=== PATIENT | female | born 1955 | race Caucasian/White ===

== ENCOUNTER 2016-09-24 03:41 | Inpatient (IN) | payer OTHER ==
[~2016-09-24] VITALS: Ht 157.5 cm; Wt 157.9 kg
[2016-09-24] VITALS (13 sets, daily range): BP systolic 110–187; BP diastolic 55–82; PULSE 53–81; RESP 18–20; Ht 157.5 cm; Wt 157.9 kg
[2016-09-24] MEDS ORDERED: NACL 0.9% 3 ML SYG IV SCH ×2 (07:30)
[2016-09-24] MEDS ORDERED: hydrALAzine 20 MG INJ IV PRN (07:30)
[2016-09-24] MEDS ORDERED: HYDROCODONE/APAP (5/325) TAB PO PRN (07:30)
[2016-09-24] MEDS ORDERED: ACETAMINOPHEN 325 MG TAB PO PRN (07:30)
[2016-09-24] MEDS ORDERED: morphine 2 MG INJ IV PRN (07:30)
[2016-09-24] MEDS ORDERED: ONDANSETRON 4 MG TAB PO PRN (07:30)
[2016-09-24] MEDS ORDERED: NITROGLYCERIN (SL) 0.4 MG TAB SL PRN (07:30)
[2016-09-24 08:42] LABS: CK-MB 0.36 ng/ml (0.0-2.4)
[2016-09-24 08:45] LABS: TROPONIN-I 0.013 ng/ml (0.00-0.12)
[2016-09-24] MEDS: FAMOTIDINE 20 MG TAB PO SCH ×2 (08:49→21:07)
[2016-09-24] MEDS: ASPIRIN 81 MG TAB PO SCH (08:49)
[2016-09-24] MEDS: GABAPENTIN 300 MG CAP PO SCH ×2 (13:35→21:07)
[2016-09-24] MEDS: LOSARTAN 50 MG TAB PO SCH (13:35)
[2016-09-24] MEDS: ENOXAPARIN 40 MG/0.4 ML SYG SC SCH (13:36)
--- NOTE | 2016-09-24 13:37 | HP ---
DATE OF ADMISSION: 09/24/2016 PRIMARY CARE PHYSICIAN: Galindo [place]. INFORMATICS MANAGER: None. CHIEF COMPLAINT: Abnormal blood pressure. HISTORY OF PRESENT ILLNESS: This 60-year-old female who presents from home with chronic hypertensio n. She states her blood pressure even runs in the 270s. Her lows run around 100. Lately she has b een feeling some fear, maybe apprehension, maybe some sort of flushing or diaphoresis, which is actu ally a subacute issue as well. It may be more prominent and lasting longer over the last few days. It is not acute. She states is due to her elevated blood pressure. No recent cough, fever, vomiting, syncope. Edema is stable. Chest pain is atypical at rest, nonexe rtional. No pleuritic discomfort. No intense sweating, but there is potential feeling flushed, anx ious, may be diaphoretic. The patient checks blood pressure in both arms, right runs higher than left, but she may be using so me left numbers to titrate her medications. She takes only 2 medications regularly. Her nifedipine she does not take as she feels like it is only needed when it is p.r.n. The same thing with the cl onidine, which she was told and takes regularly for p.r.n. clonidine. She does add salt to her food s. She has never been tested for sleep apnea. No history of kidney problems. Chronic subacute neuropathy, carpal tunnel syndrome, depression may be acute stressors, dealing with her mother. At [facility] ER, BMP unremarkable, troponin negative, EKG normal, chest x-ray. Otherwise, unrema rkable. Blood pressure was 230 over maybe 120 and it was stabilized and she was discharged. PAST MEDICAL HISTORY: 1. Hypertension. 2. Morbid obesity. The patient had lap band which was then reversed 5 years later. 3. Sleep apnea. 3. Depression. 4. Dyslipidemia. 5. Venous stasis. 6. Prediabetes. 7. Possible history of pneumonia. 8. Appendectomy. 9. Hemorrhoids. PAST SURGICAL HISTORY: Appendectomy, possible hemorrhoid surgery and lap band which was reversed fo r 5 years. SOCIAL HISTORY: No tobacco or alcohol. FAMILY HISTORY: There is no family history of early coronary artery disease, cancer, or stroke. ALLERGIES: NO KNOWN DRUG ALLERGIES. HOME MEDICATIONS: 1. Coreg 25 b.i.d. 2. Hyzaar 50 possibly once daily. 3. Clonidine p.r.n. 4. Neurontin. 5. Possibly Paxil. 6. Other medications pending. REVIEW OF SYSTEMS: NEUROLOGIC: Occasional headache. No loss of speech or vision. CARDIOVASCULAR: Positive chest pain, dyspnea and edema. LUNGS: Positive chest pain, dyspnea, edema, occasional cough. ABDOMEN: Occasional upper abdominal pain. No nausea, vomiting, diarrhea, constipation. GENITOURINARY: No hematuria, burning, micturition, fever. MUSCULOSKELETAL: Mild gait dysfunction. No rash. Positive edema. No itching. Positive stasis. ENDOCRINE: Positive dyslipidemia. Prediabetes, metabolic syndrome. No previous thyroid dysfunctio n. HEMATOLOGIC: No hematochezia, melena, hematuria. CONSTITUTIONAL: No fever, no chills. Weight change unknown. PSYCHIATRY: The patient has stable mood without significant agitation, anxiety, depression. PHYSICAL EXAMINATION: HEENT: Extraocular movements are intact. No pallor, no icterus. No adenopathy, no carotid bruits, no JVD. No droop. CARDIOVASCULAR: S1, S2 regular. No murmur, rub, gallops. LUNGS: Clear to auscultation bilaterally. ABDOMEN: Bowel sounds present, nontender, nondistended. No rigidity, no rebound or guarding. Ther e is significant pannus. Weight of at least 158 kg. EXTREMITIES: With 1+ edema. Chronic stasis, venous incompetency. Negative Homans sign. ASSESSMENT AND PLAN 1. Hypertensive urgency. 2. Salt nonadherence. 3. Probable apnea. 4. Morbid obesity. 5. Depression. 6. Carpal tunnel. 7. Dyslipidemia/metabolic syndrome/prediabetes. 8. Possible postmenopausal. PLAN: 1. Admit to med/surg. Blood pressure presently 110/55. Will add 3 medicines to help her out on he r blood pressure management from 3 different pathways. 2. Continue Lovenox for DVT prophylaxis. 3. No evidence of acute coronary syndrome, VT, etc. 4. Check TSH and renal and hepatic panel. 5. Recommend she gets testing and treated for sleep apnea. 6. Recommend she get treated for morbid obesity and to consider weight management through bypass ag ain. 7. In terms of depression, recommended she have psychology assistance to help her with long-term ca re and less medications ideally. 8. Recommend she checked her blood pressures and continue to titrate her medications using her high er numbers on her right hand. I have reinforced the issue of her symptoms of nausea and fatigue and dizziness more likely due to fluctuation in her blood pressure, rather than her low numbers that sh abdoul thinks are the cause. I recommend she continued to have her blood pressure machine evaluated in t he office setting with a more formal blood pressure monitor for continued continuity. Dictated By: ANA PAULA RODRGIUEZ/YAJAIRA Conf#: [id number] DID#: [id number]
--- NOTE | 2016-09-24 13:54 | RADRPT ---
PROCEDURE: US bilateral lower extremity veins. CLINICAL INDICATION: Bilateral leg pain and swelling. TECHNIQUE: Multiple longitudinal and transverse images of the bilateral lower extremity veins were obtained with boyce scale and color Doppler imaging. The common femoral vein, femoral vein, and popl iteal vein were evaluated. 2D grayscale measurements with compression sonography, color Doppler, and pulsed Doppler with augmentation. COMPARISON: No prior studies are available for comparison. FINDINGS: The bilateral common femoral, femoral and popliteal veins are normally compressible throughout. Col or flow demonstrates normal filling of the vessels. Normal waveforms are visualized and there is no rmal response to augmentation. IMPRESSION: 1. No evidence of deep vein thrombosis involving either lower extremity. RPTAT: QQ .Calvin Vance MD, MD Date Time Electronically viewed and signed by .Calvin Vance MD, on 09/24/2016 13:54 .R/
[2016-09-24 15:05] LABS: CREATINE KINASE 37 IU/L (23-200)
[2016-09-24 15:14] LABS: CK-MB 0.36 ng/ml (0.0-2.4)
[2016-09-24 15:31] LABS: TROPONIN-I < 0.012 ng/ml (0.00-0.12)
[2016-09-24] MEDS: NIFEdipine (XL) 60 MG TAB PO SCH (21:06)
[2016-09-25] VITALS (11 sets, daily range): BP systolic 110–136; BP diastolic 52–63; PULSE 59–124; RESP 16–20
--- NOTE | 2016-09-25 05:56 | RADRPT ---
PROCEDURE: XR Chest. CLINICAL INDICATION: Chest pain TECHNIQUE: A single AP view of the chest was obtained. COMPARISON: None. FINDINGS: No focal airspace opacification, pleural effusion or pneumothorax is seen. The cardiomediastinal si lhouette is moderately enlarged. Calcifications are seen within the aortic arch. The osseous structu res are unremarkable. IMPRESSION: 1. No radiographic evidence of acute cardiopulmonary disease. 2. Moderate cardiomegaly and aortic atherosclerosis. RPTAT: HH .Danika Flores MD, MD Date Time Electronically viewed and signed by .Danika Flores MD, MD on 09/25/2016 05:56 .G/
[2016-09-25 07:09] LABS: ADD SCAN DIFF NO
[2016-09-25 07:13] LABS: BASOPHILS % 0.1 % (0.0-2.0); EOSINOPHILS # 0.4 10^3/ul (0.0-0.5); EOSINOPHILS % 4.5 % (0.0-7.0); HEMATOCRIT 37.5 % (37.0-47.0); HEMOGLOBIN 11.9 g/dl (12.0-16.0); LYMPHOCYTES # 2.6 10^3/ul (0.8-2.9); LYMPHOCYTES % 31.8 % (15.0-51.0); MEAN CORPUSCULAR HEMOGLOBIN 27.8 pg (29.0-33.0); MEAN CORPUSCULAR HGB CONC 31.7 g/dl (32.0-37.0); MEAN CORPUSCULAR VOLUME 87.6 fl (82.0-101.0); MEAN PLATELET VOLUME 10.1 fl (7.4-10.4); MONOCYTE # 0.5 10^3/ul (0.3-0.9); MONOCYTES % 6.2 % (0.0-11.0); NEUTROPHIL # 4.7 10^3/ul (1.6-7.5); NEUTROPHILS % 57.2 % (39.0-77.0); PLATELET COUNT 240 10^3/UL (140-415); RED BLOOD COUNT 4.28 10^6/ul (4.20-5.40); RED CELL DISTRIBUTION WIDTH 13.9 % (11.5-14.5); WHITE BLOOD COUNT 8.3 10^3/ul (4.8-10.8)
[2016-09-25 07:25] LABS: INR 1.06; PROTIME 13.8 Sec (12.2-14.2); PT RATIO 1.1
[2016-09-25 07:29] LABS: ALBUMIN 3.8 g/dl (3.3-4.9)
[2016-09-25 07:30] LABS: POTASSIUM 4.1 mmol/L (3.5-5.1)
[2016-09-25 07:31] LABS: CREATININE 0.82 mg/dl (0.44-1.00)
[2016-09-25 07:32] LABS: ALBUMIN/GLOBULIN RATIO 1.11; BILIRUBIN,INDIRECT 0.3 mg/dl (0-1.1); BILIRUBIN,TOTAL 0.3 mg/dl (0.2-1.3); TOTAL PROTEIN 7.2 g/dl (6.1-8.1)
[2016-09-25 07:33] LABS: CALCIUM 9.6 mg/dl (8.4-10.2)
[2016-09-25 07:59] LABS: THYROID STIMULATING HORMONE 1.14 MIU/L (0.465-4.680)
[2016-09-25] MEDS: GABAPENTIN 300 MG CAP PO SCH (08:43)
[2016-09-25] MEDS: NIFEdipine (XL) 60 MG TAB PO SCH (08:43)
[2016-09-25] MEDS: ENOXAPARIN 40 MG/0.4 ML SYG SC SCH (08:44)
[2016-09-25] MEDS: ASPIRIN 81 MG TAB PO SCH (08:44)
[2016-09-25] MEDS: FAMOTIDINE 20 MG TAB PO SCH (08:44)
[2016-09-25] MEDS: LOSARTAN 50 MG TAB PO SCH (08:44)
--- NOTE | 2016-09-25 12:34 | PDOCDIS ---
Discharge Instructions CONDITION Patient Condition: Stable HOME CARE INSTRUCTIONS: Special Diet: cardiac ACTIVITY: Activity Restrictions: Do not Drive FOLLOW UP/APPOINTMENTS Appointments appt pcp - 1wk Sleep Apnea testing referral: [phone]- [facility]. ANA PAULA VALENTINE MD Sep 25, 2016 12:34
[2016-09-25] MEDS ORDERED: NIFE60TA11 PO (12:36)
[2016-09-25 22:20] LABS: ADD UMIC NO; URINE BILIRUBIN (Dip) NEGATIVE (NEGATIVE); URINE BLOOD (Dip) NEGATIVE (NEGATIVE); URINE COLOR YELLOW (YELLOW); URINE GLUCOSE (Dip) NEGATIVE (NEGATIVE); URINE KETONES (Dip) NEGATIVE (NEGATIVE); URINE LEUKOCYTE ESTERASE (Dip) NEGATIVE (NEGATIVE); URINE NITRITE (Dip) NEGATIVE (NEGATIVE); URINE TOTAL PROTEIN (Dip) NEGATIVE (NEGATIVE); URINE UROBILINOGEN (Dip) 0.2 E.U./dL (0.1-1.0)
--- NOTE | 2016-09-27 11:57 | RADRPT ---
Vent Rate: 69 bpm RR Interval: 0 msec TX Interval: 156 msec QRS Duration: 88 msec QT Interval: 414 msec QTC Interval: 443 msec P-R-T [place]: 51 - 22 - 67 degrees Normal sinus rhythm Normal ECG No previous tracing available for comparison Electronically Signed By: Gaudencio Petty [id number]
--- NOTE | 2016-09-28 09:06 | DS ---
DATE OF ADMISSION: 09/24/2016 DATE OF DISCHARGE: 09/25/2016 DATE OF : 1955 DATE OF ADMISSION: 09/24/2016 DATE OF DISCHARGE: 09/25/2016 PRIMARY CARE PHYSICIAN: ____ WAX PATTERN COATER: None. DIAGNOSIS ON ADMISSION: Hypertensive urgency. DIAGNOSES ON DISCHARGE: 1. Hypertensive urgency, resolved. 2. Probable sleep apnea. 3. Salt nonadherence. 4. Morbid obesity. 5. Chronic hypertension. 6. Depression. 7. Carpal tunnel syndrome. 8. Dyslipidemia/metabolic syndrome/pre-diabetes. HOSPITAL COURSE: A 60-year-old female admitted with hypertensive urgency. On 3 regular medications , her blood pressure is very well controlled, 100 to 120. She is stable and fit for discharge. No evidence of end organ damage. Patient herself probably has symptoms due to fluctuation in blood pre ssures more than her present numbers, which she claims are low. I did reinforce the issue of treatm ent in blood pressure in that her symptoms ____ discomfort should improve ____ time. Additionally, the patient would benefit from gastric bypass evaluation and sleep apnea evaluation. I will give he r the phone number to call for sleep apnea testing. Additionally, chest x-ray, ultrasound negative for DVT. Troponins negative. For her blood pressure, she will continue Coreg 25 b.i.d., Hyzaar 50 daily. I have added Nifedipine daily and she may continue clonidine p.r.n. LABORATORIES: Chest x-ray shows cardiomegaly and CBC unremarkable except hemoglobin of 11.9. CMP e ssentially unremarkable. A1c 5.5. Triglycerides 190, total of 139, HDL low at 34, LDL of 67 and TS H of ____. DISCHARGE PLAN: Home. Follow up with primary in 1 week. She may follow up with her regular cardio logist as needed, as recommended. DIET: Low salt, cholesterol. ACTIVITY: No driving if dizzy. DURABLE MEDICAL EQUIPMENT: None. CODE STATUS: FULL. CONDITION: Good. REASON FOR ADMISSION: Hypertensive urgency. BARRIERS TO DISCHARGE: None. PENDING TESTS: None. FUNCTIONAL STATUS: The patient is awake, alert and aware of care plan and options. ALLERGIES: NO KNOWN DRUG ALLERGIES STOPPED MEDICATIONS: None. CONTINUED MEDICATIONS: 1. Coreg 25 twice daily. 2. Neurontin 600 twice daily. 3. Clonidine 0.1 every 6 to 8 hours as needed for elevated blood pressure as before. 4. Hyzaar 50 one tablet daily. 5. I believe, Paxil 20 mg daily. ALTERED MEDICATIONS: None. NEW MEDICATIONS: Procardia-XL 60 mg daily. Dictated By: ANA PAULA RODRIGUEZ/YAJAIRA Conf#: [id number] DID#: [id number]
== END 2016-09-25 17:35 | disposition home or self-care (01) | DRG 305 ==
LOC: MS4 06:20
PROVIDERS: ADMIT Family Medicine; ATTEND Family Medicine
DX: I16.0 Hypertensive urgency (principal); E88.81 Metabolic syndrome and other insulin resistance; Z68.44 Body mass index [BMI] 60.0-69.9, adult; G47.30 Sleep apnea, unspecified; E66.01 Morbid (severe) obesity due to excess calories; F32.9 Major depressive disorder, single episode, unspecified; G56.00 Carpal tunnel syndrome, unspecified upper limb; E78.5 Hyperlipidemia, unspecified; R73.03 Prediabetes; N95.9 Unspecified menopausal and perimenopausal disorder
CPT/HCPCS: 71010; 80053; 80061; 81003; 82306; 82550; 82553; 83036; 84443; 84484; 84703; 85025; 85610; 87081; 93005; 93923; J1650

== ENCOUNTER 2016-09-27 23:19 | Inpatient (IN) | payer OTHER ==
[~2016-09-27] VITALS: Ht 157.5 cm; Wt 148.0 kg
[2016-09-27 02:30] VITALS: BP 180/99; PULSE 77; RESP 18
[~2016-09-27 23:19] MED LIST: NIFE60TA11 PO
[2016-09-27] MEDS ORDERED: SOD CHLORIDE 0.9% 500 ML IV STA (23:30)
[2016-09-27] MEDS ORDERED: ONDANSETRON 4 MG INJ IV STA (23:30)
[2016-09-27] MEDS ORDERED: morphine 4 MG/ML VIAL IV STA (23:30)
[2016-09-27 23:47] LABS: ADD SCAN DIFF NO
[2016-09-27 23:50] LABS: BASOPHILS % 0.2 % (0.0-2.0); EOSINOPHILS # 0.4 10^3/ul (0.0-0.5); EOSINOPHILS % 4.4 % (0.0-7.0); HEMATOCRIT 39.2 % (37.0-47.0); HEMOGLOBIN 13.1 g/dl (12.0-16.0); LYMPHOCYTES # 2.5 10^3/ul (0.8-2.9); LYMPHOCYTES % 28.5 % (15.0-51.0); MEAN CORPUSCULAR HGB CONC 33.4 g/dl (32.0-37.0); MEAN CORPUSCULAR VOLUME 83.8 fl (82.0-101.0); MEAN PLATELET VOLUME 10.2 fl (7.4-10.4); MONOCYTE # 0.5 10^3/ul (0.3-0.9); MONOCYTES % 6.1 % (0.0-11.0); NEUTROPHIL # 5.4 10^3/ul (1.6-7.5); NEUTROPHILS % 60.7 % (39.0-77.0); PLATELET COUNT 269 10^3/UL (140-415); RED BLOOD COUNT 4.68 10^6/ul (4.20-5.40); RED CELL DISTRIBUTION WIDTH 13.3 % (11.5-14.5); WHITE BLOOD COUNT 8.8 10^3/ul (4.8-10.8)
[2016-09-28] VITALS (12 sets, daily range): BP systolic 89–131; BP diastolic 42–62; PULSE 62–77; RESP 18–20; Ht 157.5 cm; Wt 148.0 kg
[2016-09-28 00:04] LABS: ALBUMIN 4.2 g/dl (3.3-4.9)
[2016-09-28 00:05] LABS: CHLORIDE 100 mmol/L (97-110); POTASSIUM 3.7 mmol/L (3.5-5.1); SODIUM 141 mmol/L (135-144)
[2016-09-28 00:07] LABS: ALBUMIN/GLOBULIN RATIO 1.05; ALKALINE PHOSPHATASE 39 IU/L (42-121); ANION GAP 16 (8-16); ASPARTATE AMINO TRANSFERASE 24 IU/L (15-46); BILIRUBIN,INDIRECT 0.4 mg/dl (0-1.1); BILIRUBIN,TOTAL 0.4 mg/dl (0.2-1.3); CARBON DIOXIDE 29 mmol/L (21-31); TOTAL PROTEIN 8.2 g/dl (6.1-8.1)
[2016-09-28 00:08] LABS: ALANINE AMINOTRANSFERASE 32 IU/L (13-69); BLOOD UREA NITROGEN 20 mg/dl (7-20); CALCIUM 9.9 mg/dl (8.4-10.2); GLUCOSE 117 mg/dl (70-220)
[2016-09-28 00:17] LABS: B-TYPE NATRIURETIC PEPTIDE 171 PG/ML (0-125)
--- NOTE | 2016-09-28 00:17 | RADRPT ---
PROCEDURE: XR Chest. CLINICAL INDICATION: Chest pain. TECHNIQUE: Portable AP view of the chest was obtained. COMPARISON: 09/25/2016 FINDINGS: The cardiomediastinal silhouette is enlarged. The lungs are clear. There is no evidence for pleura l effusion, pneumothorax or pulmonary vascular congestion. The osseous structures are intact with n o evidence for acute abnormality. Calcification of the aortic arch is again demonstrated RPTAT:HJJR IMPRESSION: 1. Stable cardiac silhouette enlargement without evidence for acute intrathoracic pathology or hurley e from 09/25/2016. 2. Aortic atherosclerosis is present. Physician Larisa Date Time Electronically viewed and signed by Physician Larisa on 09/28/2016 00:17 JR/
[2016-09-28 00:32] LABS: INR 1.08; PT RATIO 1.1; TROPONIN-I < 0.012 ng/ml (0.00-0.12)
[2016-09-28 00:34] LABS: PARTIAL THROMBOPLASTIN TIME 29.6 Sec (25.0-35.0)
[2016-09-28] MEDS ORDERED: LIDOCAINE/MYLANTA 40 ML BTL PO ONE (01:00)
--- NOTE | 2016-09-28 01:33 | ERA ---
ER Documentation Chief Complaint Date/Time DATE: 09/28/16 TIME: 01:32 Chief Complaint CHEST/AP X 1 WEEK, WORSE TONIGHT, RADIATING PAIN TOT THE BACK/LEFT ARM HPI This is a 60-year-old female with chest pain along with 1 week worse tonight. Pain is radiating to her back and to her left arm. Patient said her blood pressure was also running very high. Pain is mild to moderate in intensity. Patient recently admitted and discharged from hospital. Patient states that she did have a stress test on echocardiogram during last admission. ROS All systems reviewed and are negative except as per history of present illness. Medications Home Meds Active Scripts Nifedipine (Nifedical Xl) 60 Mg Tab.er.24, 60 MG PO DAILY for 10 Days, #10 TAB 1 Refill Prov:ANA PAULA VALENTINE MD 09/25/16 Allergies Allergies: Coded Allergies: No Known Allergy (Unverified , 09/24/16) PMhx/Soc History of Surgery: Yes ( hemorrhoids) Anesthesia Reaction: No Hx Neurological Disorder: No Hx Respiratory Disorders: No Hx Cardiac Disorders: Yes (htn, high cholesterol) Hx Psychiatric Problems: No Hx Miscellaneous Medical Probl: No Hx Alcohol Use: No Hx Substance Use: No Hx Tobacco Use: No Smoking Status: Never smoker Physical Exam Vitals Vital Signs Date Time Temp Pulse Resp B/P Pulse Ox O2 Delivery O2 Flow Rate FiO2 09/28/16 00:23 68 19 170/68 94 Room Air 09/27/16 23:30 98.1 78 20 216/87 96 Physical Exam Const: [] Head: Atraumatic Eyes: Normal Conjunctiva ENT: Normal External Ears, Nose and Mouth. Neck: Full range of motion..~ No meningismus. Resp: Clear to auscultation bilaterally Cardio: Regular rate and rhythm, no murmurs Abd: Soft, non tender, non distended. Normal bowel sounds. Morbidly obese Skin: No petechiae or rashes Back: No midline or flank tenderness Ext: No cyanosis, or edema Neur: Awake and alert Psych: Normal Mood and Affect Result Diagram: 09/27/16 2330 09/27/16 2330 Results 24 hrs Laboratory Tests Test 09/27/16 23:30 White Blood Count 8.810^3/ul Red Blood Count 4.6810^6/ul Hemoglobin 13.1g/dl Hematocrit 39.2% Mean Corpuscular Volume 83.8fl Mean Corpuscular Hemoglobin 28.0pg Mean Corpuscular Hemoglobin Concent 33.4g/dl Red Cell Distribution Width 13.3% Platelet Count 80482^3/UL Mean Platelet Volume 10.2fl Neutrophils % 60.7% Lymphocytes % 28.5% Monocytes % 6.1% Eosinophils % 4.4% Basophils % 0.2% Nucleated Red Blood Cells % 0.0/100WBC Neutrophils # 5.410^3/ul Lymphocytes # 2.510^3/ul Monocytes # 0.510^3/ul Eosinophils # 0.410^3/ul Basophils # 0.010^3/ul Nucleated Red Blood Cells # 0.010^3/ul Prothrombin Time 14.0Sec Prothrombin Time Ratio 1.1 INR International Normalized Ratio 1.08 Activated Partial Thromboplast Time 29.6Sec Sodium Level 141mmol/L Potassium Level 3.7mmol/L Chloride Level 100mmol/L Carbon Dioxide Level 29mmol/L Anion Gap 16 Blood Urea Nitrogen 20mg/dl Creatinine 0.70mg/dl Glucose Level 117mg/dl Calcium Level 9.9mg/dl Total Bilirubin 0.4mg/dl Direct Bilirubin 0.00mg/dl Indirect Bilirubin 0.4mg/dl Aspartate Amino Transf (AST/SGOT) 24IU/L Alanine Aminotransferase (ALT/SGPT) 32IU/L Alkaline Phosphatase 39IU/L Troponin I < 0.012ng/ml B-Type Natriuretic Peptide 171PG/ML Total Protein 8.2g/dl Albumin 4.2g/dl Globulin 4.00g/dl Albumin/Globulin Ratio 1.05 Current Medications Medications (Trade) Dose Ordered Sig/Ebonie Route PRN Reason Start Time Stop Time Status Last Admin Dose Admin Sodium Chloride (NS) 500 ml @ 500 mls/hr Q1H STAT IV 09/27/16 23:30 09/28/16 00:29 DC 09/27/16 23:40 Morphine Sulfate (morphine) 4 mg ONCE STAT IV 09/27/16 23:30 09/27/16 23:31 DC 09/27/16 23:40 Ondansetron HCl (Zofran Inj) 4 mg ONCE STAT IV 09/27/16 23:30 09/27/16 23:31 DC 09/27/16 23:40 Miscellaneous Medication (Gi Cocktail (2)) 40 ml ONCE ONCE PO 09/28/16 01:00 09/28/16 01:01 DC 09/28/16 00:53 Procedures/MDM EKG: Rate/Rhythm: [Normal Sinus Rhythm] QRS, ST, T-waves: [No changes consistent w/ acute ischemia] Impression: [No evidence of ischemia or arrhythmia] Chest X-ray 1V Interpreted by me: Soft Tissue: No acute abnormalities Bones: No acute abnormalities Mediastinum/Cardiac Silhouette/Lungs: [No acute abnormalities] Patient's symptoms are concerning for cardiac cause will require inpatient workup and continuous monitoring. Further w/u for ischemia, arrhythmia, PE or dissection will be deferred to the inpatient team. Accepting Care Team: Current data and ongoing care discussed. Time: 1:30 AM Primary Provider: Hospitalist Consulting: [XOXOXO] Outstanding Data: none Departure Diagnosis: Primary Impression: Chest pain Qualified Code: R07.9 - Chest pain, unspecified type Condition: Serious LANDEN DELCID Sep 28, 2016 01:33
--- NOTE | 2016-09-28 02:16 | HP ---
Date/Time of Note Date/Time of Note DATE: 09/28/16 TIME: 02:14 Assessment/Plan VTE Prophylaxis VTE Prophylaxis Intervention: other (Lovenox) Lines/Catheters IV Catheter Type (from Nrsg): Saline Lock Assessment/Plan Assessment/Plan 1) Chest Pain - Admit to Telemetry - Serial Cardiac Enzymes and Repeat EKG in AM - Echocardiogram - Cardiology Consult - Dr. Montes 2) Fatigue - TSH was done here a couple of days ago 1.52 - Vitamin B-12 - UA inegative 2 days ago 3) Resistant Hypertension - Consider Renal Artery Ultrasound with Duplex to look for Renal Artery Stenosis 4) Tinnitus - Carotid Artery Ultrasound 5) Dizziness - Orthostatics 6) Morbid Obesity - BMI = 59.6 - Pulverizing And Sifting Operator Consult - Prealbumin - to check for quality of diet - I suspect patient has Obstructive Sleep Apnea and may require O2 at night HPI/ROS Admit Date/Time Admit Date/Time Sep 28, 2016 at 01:24 Hx of Present Illness Patient presents with chest pain. She says the pain starts in her lower back and moves up into her shoulder blades and arms and around to the right side of her chest. She states the pain is a burning pressure. When she feels that, she gets SOB, but has no nausea vomiting or sweating. Instead, her face gets really red. She states that she is dizzy and tired all of the time, at least for several months now. Her hears have started buzzing/pulsing again. No history of heartburn or GERD. No cardiac or pulmonary history. No diabetes, but she says she is borderline - fasting sugar 112. She states that her blood pressure goes up when she feels the burning pressure. She is not sure what happens first, the pain or the blood pressure going up. She states that she was hospitalized for the same thin last and Wednesday (September 24-) and they didn't find anything. She did not have an Ultrasound of her heart, Stress Test or a Cardiology Consult She is particularly concerned because her blood pressure has been getting higher the more blood pressure medications she takes. She mentions Clonidine and Lotensin along with the Nifedical Listed below. I asked her if she snores, and she states that she is supposed to see her primary physician tomorrow, meaning Wednesday, 09/28 and that she is supposed to get tested for Sleep Apnea. She does wake up choking at times, but it used to happen more frequently ROS General: Admits: Extreme Fatigue Denies: Fever, Chills, Poor Appetite, Abnormal Weight Loss, Generalized Body Aches Eyes: Admits: Denies: Blurry Vision, Double Vision HENT: Admits: Ringing/Noise in her ears. Denies: Sinus Pain/Pressure, Ear Pain/Pressure, Runny/Stuffy Nose, Sore Throat Cardiovascular: Admits: Chest Pain, better now that she has had some medications, Leg Swelling, not any worse than usual Denies: Palpitations Pulmonary: Admits: Shortness of Breath, improved since arrival Denies: Cough, Wheeze Gastrointestinal: Admits: Denies: Abdominal Pain, Nausea, Vomiting, Diarrhea, Blood in Stool, Black-Colored Stool Urogenital: Admits: Denies: Burning with Urination, Urinary Frequency Musculoskeletal: Admits: Pain up her back into shoulders, arms and right chest , not present now. Denies: Joint Pain, Joint Swelling Neurological: Admits: Dizziness Denies: Headache, Numbness, Tingling, Shooting Pains Integumentary: Admits: Denies: Rash, Itch, Yellow Skin PMH/Family/Social Past Medical History HTN, Dyslipidemia, Morbid Obesity Social History Alcohol Use: none Smoking Status: Never smoker Drug Use: none Exam/Review of Systems Vital Signs Vitals Vital Signs Date Time Temp Pulse Resp B/P Pulse Ox O2 Delivery O2 Flow Rate FiO2 09/28/16 01:43 65 22 149/55 96 Room Air 09/27/16 23:30 98.1 Intake and Output 09/27/16 09/27/16 09/28/16 15:00 23:00 07:00 Intake Total 500 ml Balance 500 ml Exam Exam General: Morbidly obese Yi-[place] female, alert and oriented, in no acute distress, accompanied by her sister. Eyes: Sclera White, EOMI HENT: Normocephalic/Atraumatic, External Ears/Nose Normal, Moist Mucus Membranes Neck: Supple, Trachea Midline Cardiovascular: Normal Rate, Normal Rhythm, Normal S1 and S2, No Murmur, No Extra Sounds. Radial pulse +2/4 and regular. +1 Pitting edema to mid leg bilaterally with left side being more swollen, especially left foot. Both feet are warm. Pulmonary: Clear to Auscultation Bilaterally, Normal Respiratory Effort, No Rales, Rhonchi or Wheezes Gastrointestinal: Normoactive Bowel Sounds, Soft, Non-Tender/Non-Distended. Unable to palpate her internal organs well due to body habitus Urogenital: Deferred Musculoskeletal: Normal Muscle Bulk and Tone Neurological: CN II - XII Grossly Intact, Non-Focal, Speech Normal Integumentary: Normal Moisture and Temperature, Good Turgor, No Jaundice, No Rash Lymphatic: No Cervical Lymphadenopathy Psychiatric: Appropriate Mood and Affect, Good Eye Contact Labs Result Diagram: 09/27/16232909/27/162329 Medications Medications Current Medications Medications (Trade) Dose Ordered Sig/Ebonie Route PRN Reason Start Time Stop Time Status Last Admin Dose Admin Sodium Chloride (NS) 500 ml @ 500 mls/hr Q1H STAT IV 09/27/16 23:30 09/28/16 00:29 DC 09/27/16 23:40 Morphine Sulfate (morphine) 4 mg ONCE STAT IV 09/27/16 23:30 09/27/16 23:31 DC 09/27/16 23:40 Ondansetron HCl (Zofran Inj) 4 mg ONCE STAT IV 09/27/16 23:30 09/27/16 23:31 DC 09/27/16 23:40 Miscellaneous Medication (Gi Cocktail (2)) 40 ml ONCE ONCE PO 09/28/16 01:00 09/28/16 01:01 DC 09/28/16 00:53 Procedures Procedures Laboratory Tests Test 09/27/16 23:30 White Blood Count 8.810^3/ul Red Blood Count 4.6810^6/ul Hemoglobin 13.1g/dl Hematocrit 39.2% Mean Corpuscular Volume 83.8fl Mean Corpuscular Hemoglobin 28.0pg Mean Corpuscular Hemoglobin Concent 33.4g/dl Red Cell Distribution Width 13.3% Platelet Count 86217^3/UL Mean Platelet Volume 10.2fl Neutrophils % 60.7% Lymphocytes % 28.5% Monocytes % 6.1% Eosinophils % 4.4% Basophils % 0.2% Nucleated Red Blood Cells % 0.0/100WBC Neutrophils # 5.410^3/ul Lymphocytes # 2.510^3/ul Monocytes # 0.510^3/ul Eosinophils # 0.410^3/ul Basophils # 0.010^3/ul Nucleated Red Blood Cells # 0.010^3/ul Prothrombin Time 14.0Sec Prothrombin Time Ratio 1.1 INR International Normalized Ratio 1.08 Activated Partial Thromboplast Time 29.6Sec Sodium Level 141mmol/L Potassium Level 3.7mmol/L Chloride Level 100mmol/L Carbon Dioxide Level 29mmol/L Anion Gap 16 Blood Urea Nitrogen 20mg/dl Creatinine 0.70mg/dl Glucose Level 117mg/dl Calcium Level 9.9mg/dl Total Bilirubin 0.4mg/dl Direct Bilirubin 0.00mg/dl Indirect Bilirubin 0.4mg/dl Aspartate Amino Transf (AST/SGOT) 24IU/L Alanine Aminotransferase (ALT/SGPT) 32IU/L Alkaline Phosphatase 39IU/L Troponin I < 0.012ng/ml B-Type Natriuretic Peptide 171PG/ML Total Protein 8.2g/dl Albumin 4.2g/dl Globulin 4.00g/dl Albumin/Globulin Ratio 1.05 EKG: Interpreted by ER Physician, reviewed by me - waqas. Rate/Rhythm: [Normal Sinus Rhythm] QRS, ST, T-waves: [No changes consistent w/ acute ischemia] Impression: [No evidence of ischemia or arrhythmia] RADIOLOGY: PROCEDURE: XR Chest. CLINICAL INDICATION: Chest pain. TECHNIQUE: Portable AP view of the chest was obtained. COMPARISON: 09/25/2016 IMPRESSION: 1. Stable cardiac silhouette enlargement without evidence for acute intrathoracic pathology or change from 09/25/2016. 2. Aortic atherosclerosis is present. UNRULY MARIE DO Sep 28, 2016 02:16
[2016-09-28] MEDS ORDERED: LORAZEPAM 0.5 MG TAB PO PRN (02:30)
[2016-09-28] MEDS ORDERED: morphine 2 MG INJ IV PRN (02:30)
[2016-09-28] MEDS ORDERED: NACL 0.9% 3 ML SYG IV SCH (02:30)
[2016-09-28] MEDS ORDERED: NITROGLYCERIN (SL) 0.4 MG TAB SL PRN (02:30)
[2016-09-28] MEDS ORDERED: METOCLOPRAMIDE 10 MG INJ IV PRN (02:30)
[2016-09-28] MEDS ORDERED: HYDROCODONE/APAP (5/325) TAB PO PRN (02:30)
[2016-09-28] MEDS ORDERED: ACETAMINOPHEN 325 MG TAB PO PRN (02:30)
[2016-09-28 03:25] LABS: CREATINE KINASE 32 IU/L (23-200)
[2016-09-28 03:35] LABS: CK-MB 0.43 ng/ml (0.0-2.4)
[2016-09-28 03:53] LABS: TROPONIN-I < 0.012 ng/ml (0.00-0.12)
[2016-09-28 04:13] LABS: PREALBUMIN 22.3 mg/dl (17.6-36.0)
[2016-09-28] MEDS: HYDROCHLOROTHIAZIDE 25 MG TAB PO SCH (09:00)
[2016-09-28] MEDS ORDERED: NIFEdipine (XL) 60 MG TAB PO SCH (09:00)
[2016-09-28] MEDS ORDERED: NIFEDIPINE 60 MG PO SCH (09:00)
[2016-09-28] MEDS: BENAZEPRIL 20 MG TAB GTB SCH ×2 (09:00→21:55)
[2016-09-28] MEDS: ENOXAPARIN 40 MG/0.4 ML SYG SC SCH ×2 (09:00→21:57)
[2016-09-28 10:04] LABS: CREATINE KINASE 24 IU/L (23-200)
[2016-09-28 10:12] LABS: CK-MB 0.43 ng/ml (0.0-2.4)
[2016-09-28 10:17] LABS: TROPONIN-I < 0.012 ng/ml (0.00-0.12)
[2016-09-28] MEDS: FAMOTIDINE 20 MG TAB PO SCH ×2 (10:28→21:55)
--- NOTE | 2016-09-28 13:40 | RADRPT ---
Echocardiogram Report Patient Name: JOSÉ MIGUEL PATEL Gender: Female Date: 1955 Study Date: 28-Sep-2016 [employer] Operator: Temo Willingham [facility] Location: 5566 Ref. Physician: UNRULY MARIE Quality: Technically Difficult Study Procedures: Transthoracic echocardiogram with complete 2D, M-Mode, and doppler examination. Indications: Chest Pain. Edema. 2D/M Mode Doppler Measurement Value Normal Ranges Measurement Value Normal Ranges AoR Diam 2D 2.7 2.0 - 3.7 cm AV Peak Nic 1.6 m/sec LA Dimen 2D 3.8 2.3 - 4.0 cm AV Peak PG 10.5 mmHg LVOT Peak Nic 1.2 m/sec MV E Peak Nic 0.7 m/sec MV A Peak Nic 1.0 m/sec MV E/A 0.7 MV Decel Time 312 msec MV Decel Sandoval 2 MV E/A 0.7 TR Peak Nic 2.4 m/sec TR Peak PG 23.6 mmHg RVSP 27.0 mmHg Findings Left Ventricle: Overall, normal left ventricular systolic function. Not all segments visualized. Ejection fraction is visually estimated at 55 %. Tissue Doppler/Mitral Doppler indices are consistent with impaired relaxation (Stage I diastolic dysfunction). Right Ventricle: Not well visualized. Left Atrium: The left atrium is normal in size. Right Atrium: The right atrium is normal in size. Mitral Valve: Normal appearance and function of the mitral valve with trace physiologic regurgitation. Aortic Valve: No significant aortic stenosis or insufficiency. Aortic valve not well visualized. Tricuspid Valve: Tricuspid valve not well visualized. Estimated peak PA systolic pressure 27 mmHg. There is mild tricuspid regurgitation. Pulmonic Valve: Pulmonic valve not well visualized. Pericardium: Normal pericardium with no significant pericardial effusion. Aorta: Not well visualized. IVC: Normal size and normal respiratory collapse consistent with normal right atrial pressure. Conclusions 1.Overall, normal left ventricular systolic function. Not all segments visualized. Ejection fraction is visually estimated at 55 %. Tissue Doppler/Mitral Doppler indices are consistent with impaired relaxation (Stage I diastolic dysfunction). 2.Normal appearance and function of the mitral valve with trace physiologic regurgitation. 3.No significant aortic stenosis or insufficiency. Aortic valve not well visualized. 4.Tricuspid valve not well visualized. Estimated peak PA systolic pressure 27 mmHg. There is mild tricuspid regurgitation. 5.suboptimal study. Electronically Signed By: Norbert Montes 28-Sep-2016 13:40:16 -0700 Patient Name: JOSÉ MIGUEL PATEL Study Date: 28-Sep-[id number]
[2016-09-28] MEDS: ASPIRIN (EC) 81 MG TAB PO SCH (14:30)
--- NOTE | 2016-09-28 15:04 | PN ---
Date/Time of Note Date/Time of Note DATE: 09/28/16 TIME: 14:54 Assessment/Plan VTE Prophylaxis VTE Prophylaxis Intervention: LMWH Lines/Catheters IV Catheter Type (from Nrsg): Saline Lock Assessment/Plan Assessment/Plan 1) Chest Pain, atypical, stress test today per cardiology 2) RUQ abdominal pain, us 3) Hypertension, deacrease nifedpine 4) Morbid Obesity - BMI = 59.6 Subjective 24 Hr Interval Summary Free Text/Dictation no chest pain. states no dizziness when blood pressure is not low Exam/Review of Systems Vital Signs Vitals Vital Signs Date Time Temp Pulse Resp B/P Pulse Ox O2 Delivery O2 Flow Rate FiO2 09/28/16 12:16 107/53 09/28/16 12:14 67 09/28/16 12:08 97.7 18 93 09/28/16 01:43 Room Air Intake and Output 09/27/16 09/27/16 09/28/16 15:00 23:00 07:00 Intake Total 700 ml Balance 700 ml Exam Constitutional: alert, obese, oriented, well developed Psych: nl mood/affect, no complaints Head: atraumatic, normocephalic Eyes: EOMI, PERRL, nl conjunctiva, nl lids ENMT: nl external ears & nose, nl lips & teeth, nl nasal mucosa & septum Neck: non-tender, supple Respiratory: clear to auscultation, normal air movement, No congested cough, No crackles/rales, No diminished breath sounds, No intercostal retraction, No labored breathing, No other, No respirations, No tactile fremitus, No wheezing Cardiovascular: nl pulses, regular rate and rhythm, No S3, No S4, No bruits, No diastolic murmur, No edema, No gallop, No irregular rhythm, No jugular venous distention (JVD), No murmurs/extra sounds, No other, No rub, No systolic murmur Gastrointestinal: nl liver, spleen, non-tender, soft, No ascites, No bowel sounds, No distended, No firm, No hepatomegaly, No mass , No other, No rebound or guarding, No splenomegaly, No surgical scars, No tender Musculoskeletal: nl extremities to inspection Extremities: normal pulses, No calf tenderness, No clubbing, No cyanosis, No edema, No other, No palpable cord, No pitting pedal edema, No tenderness Neurological: MILL MANAGER II-XII intact, nl mental status, nl speech, nl strength Skin: nl turgor Lymph: nl lymph nodes Results Result Diagram: 09/27/160 09/27/16 2330 Results 24 hrs Laboratory Tests Test 09/27/16 23:30 09/28/16 02:50 09/28/16 08:52 White Blood Count 8.8 Red Blood Count 4.68 Hemoglobin 13.1 Hematocrit 39.2 Mean Corpuscular Volume 83.8 Mean Corpuscular Hemoglobin 28.0 L Mean Corpuscular Hemoglobin Concent 33.4 Red Cell Distribution Width 13.3 Platelet Count 269 Mean Platelet Volume 10.2 Neutrophils % 60.7 Lymphocytes % 28.5 Monocytes % 6.1 Eosinophils % 4.4 Basophils % 0.2 Nucleated Red Blood Cells % 0.0 Neutrophils # 5.4 Lymphocytes # 2.5 Monocytes # 0.5 Eosinophils # 0.4 Basophils # 0.0 Nucleated Red Blood Cells # 0.0 Prothrombin Time 14.0 Prothrombin Time Ratio 1.1 INR International Normalized Ratio 1.08 Activated Partial Thromboplast Time 29.6 Sodium Level 141 Potassium Level 3.7 Chloride Level 100 Carbon Dioxide Level 29 Anion Gap 16 Blood Urea Nitrogen 20 Creatinine 0.70 Glucose Level 117 Calcium Level 9.9 Total Bilirubin 0.4 Direct Bilirubin 0.00 Indirect Bilirubin 0.4 Aspartate Amino Transf (AST/SGOT) 24 Alanine Aminotransferase (ALT/SGPT) 32 Alkaline Phosphatase 39 L Troponin I < 0.012 < 0.012 < 0.012 B-Type Natriuretic Peptide 171 H Total Protein 8.2 H Albumin 4.2 Globulin 4.00 H Albumin/Globulin Ratio 1.05 Creatine Kinase 32 24 Creatine Kinase Index 1.3 1.8 Creatinine Kinase MB (Mass) 0.43 0.43 Prealbumin 22.3 Vitamin B12 Level 430 Medications Medications Current Medications Lorazepam (Ativan) 0.5 mg Q8H PRN PO ANXIETY; Start 09/28/16 at 02:30 Metoclopramide HCl (Reglan) 10 mg Q6H PRN IV NAUSEA AND/OR VOMITING; Start at 02:30 Nitroglycerin (Nitroglycerin (Sl Tab) 0.4 Mg) 1 tab Q5M PRN SL CHEST PAIN; Start 09/28/16 at 02:30 Acetaminophen (Tylenol Tab) 650 mg Q6H PRN PO PAIN LEVEL 1-3 OR FEVER; Start at 02:30 Acetaminophen/ Hydrocodone Bitart ([place] (5/325)) 1 tab Q6H PRN PO PAIN LEVEL 4 -6; Start 09/28/16 at 02:30 Morphine Sulfate (morphine) 2 mg Q4H PRN IV PAIN LEVEL 7-10; Start 09/28/16 at 02:30 Famotidine (Pepcid) 20 mg Q12 PO Last administered on 09/28/16t 10:28; Admin Dose 20 MG; Start 09/28/16 at 09:00 Enoxaparin Sodium (Lovenox) 40 mg DAILY SC ; Start 09/28/16 at 09:00 Benazepril HCl (Lotensin) 20 mg DAILY GTB ; Start 09/28/16 at 09:00 Hydrochlorothiazide (Hydrochlorothiazide) 25 mg DAILY PO ; Start 09/28/16 at 09: 00 Nifedipine (Procardia Xl) 60 mg DAILY PO ; Start 09/28/16 at 09:00 Aspirin (Halfprin) 81 mg DAILY PO ; Start 09/28/16 at 14:30 COBY ALTMAN MD Sep 28, 2016 15:04
--- NOTE | 2016-09-28 15:21 | CONS ---
DATE OF ADMISSION: 09/28/2016 DATE OF CONSULTATION: 09/28/2016 TYPE OF CONSULTATION: Cardiology. REASON FOR CONSULTATION: Chest pain. CHIEF COMPLAINT: Chest pain, high blood pressure. HISTORY OF PRESENT ILLNESS: Thank you for this referral. History obtained from the patient and dis cussion with Dr. Samantha Nguyen. This is a pleasant 60-year-old [place] female with history of morbid obesity, hypertension who came to emergency room with the above complaint. The patient apparently w as here about a week ago with similar symptoms. The patient said that when her blood pressure goes very high, she gets chest pain anteriorly under her breasts, bilateral side, pressure-like. It last s a few minutes and it goes away once the blood pressure is improved. The patient states that her b lood pressure has been up and down and has been running around 250. She is not able to walk much. She is also is having some arm numbness. Her blood pressure currently has remained very well contro lled since she has been here on the medication. Her pain has resolved. PAST MEDICAL HISTORY: History of hypertension, dyslipidemia, morbid obesity. MEDICATIONS: As per medication reconciliation, personally reviewed. SOCIAL HISTORY: Does not smoke or drink. FAMILY HISTORY: Patient's father with [place]. He was a smoker as well. ALLERGIES: NO REPORTED ALLERGIES. REVIEW OF SYSTEMS: As above mentioned. She also has gained weight lately more as well. PHYSICAL EXAMINATION: VITAL SIGNS: Temperature 97.7, heart rate of 67, blood pressure 107/53, respiration rate of 18, sat urating 93%. HEENT: Normocephalic, atraumatic, morbidly obese female. Pupils are equal. No acute distress. CARDIOVASCULAR: Regular rate and rhythm, systolic murmur. PULMONARY: With no wheezes heard. GASTROINTESTINAL: Obese, soft, nontender. EXTREMITIES: No significant lower extremity edema. NEUROLOGIC: Awake and alert, responds appropriately. PSYCHIATRIC: Appears to be calm and pleasant. LABORATORY: Troponins have been negative x3. Albumin is 4.2. BNP of 171, sodium 141, potassium 3. 7, BUN of 20, creatinine 0.7, glucose 117. Chest x-ray shows stable cardiac enlargement without farida dence of acute intrathoracic pathology or change. Echocardiogram was personally reviewed and was a technically difficult study, which showed probably normal LV systolic function. EKG was also person ally reviewed, showed normal sinus rhythm. No evidence of ischemia. ASSESSMENT AND PLAN: 1. Chest pain, rule acute coronary syndrome with hypertensive urgency, currently under good control . 2. Morbid obesity. 3. Dyslipidemia. RECOMMENDATIONS: The patient's blood pressure currently under good control on the current regimen. We will start the patient on aspirin. Troponins have been negative. I will order a Lexiscan today to rule out significant obstructive coronary artery disease. Dictated By: GARLAND CERDA/YAJAIRA Conf#: [id number] DID#: [id number]
[2016-09-28] MEDS ORDERED: REGADENOSON 0.4 MG/5 ML SYG ONE (15:54)
--- NOTE | 2016-09-28 17:35 | RADRPT ---
PROCEDURE: Lexiscan myocardial perfusion study CLINICAL INDICATION: 60 -year-old patient complaining of chest pain. TECHNIQUE: Lexiscan 0.4 mg intravenously separate acquisition gated myocardial perfusion SPECT usi ng Tc 99m Myoview 33.8 mCi intravenously at stress and Tc-99m Myoview, 11.7 mCi intravenously at res t was performed using the rest/stress sequence. Poststress Myoview SPECT images were obtained in th e supine position. COMPARISON: No prior studies. FINDINGS: Perfusion images reveal mild nonreversible perfusion abnormality in the anterior and anteroseptal wa lls, which is likely related to soft tissue attenuation. Lexiscan post stress gated SPECT images demonstrate no wall motion abnormalities. IMPRESSION: 1. No evidence of stress-induced ischemia. 2. No wall motion abnormalities. 3. The left ventricle ejection fraction at stress is 63%. A call report was made to Dr. Montes at 05:32 p.m. on September 28, 2016. RPTAT: HH .Radha Zavala MD, MD Date Time Electronically viewed and signed by .Radha Zavala MD, on 09/28/2016 17:34 .L/
--- NOTE | 2016-09-28 19:32 | CARRPT ---
DATE OF PROCEDURE: 09/28/2016 PROCEDURE: Lexiscan stress test. INDICATION: Chest pain. DESCRIPTION: Lexiscan was performed as per protocol. FINDINGS: 1. Baseline EKG showed normal sinus rhythm, normal ECG. 2. Heart rate at baseline 82, blood pressure 158/72, heart rate at peak stress is 89, blood pressur e 194/79. 3. No significant ischemic ST changes seen. 4. No significant arrhythmia is seen. CONCLUSION: Completion of Lexiscan at stress test as per protocol. See nuclear medicine result for final report. Dictated By: GARLAND SMITH MD AV/NTS Conf#: [id number] DID#: [id number] CC: UNRULY MARIE MD;*[facility]*
[2016-09-29] VITALS (9 sets, daily range): BP systolic 134–186; BP diastolic 61–86; PULSE 58–82; RESP 18–20
[2016-09-29] MEDS: ASPIRIN (EC) 81 MG TAB PO SCH (09:00)
--- NOTE | 2016-09-29 09:53 | RADRPT ---
Vent Rate: 62 bpm RR Interval: 0 msec OK Interval: 150 msec QRS Duration: 86 msec QT Interval: 426 msec QTC Interval: 432 msec P-R-T [place]: 21 - 12 - 61 degrees Normal sinus rhythm Normal ECG Electronically Signed By: Guillaume Garcia [id number]
--- NOTE | 2016-09-29 10:01 | RADRPT ---
PROCEDURE: US Abdomen Limited . CLINICAL INDICATION: Abdominal pain TECHNIQUE: Multiple real-time images were acquired of the patient's right upper quadrant abdomen u tilizing a high resolution transducer. COMPARISON: None FINDINGS: The liver measures 24.1 cm and demonstrates a coarsened echogenicity. The gallbladder is filled with a moderate amount of bile. A 2.1 x 2.1 x 2.9 cm soft tissue echogenicity is structures identified along the nondependent wall of the gallbladder. The gallbladder wall is not thickened at 1.0 mm. No pericholecystic fluid is noted. The common bile duct measures 4.8 mm in diameter. The visualized po rtions of the proximal pancreas are unremarkable. The tail of the pancreas is not well visualized. Antegrade flow is seen in the portal vein. Right kidney measures 11.5 cm. Right kidney demonstrates a normal echogenicity. No hydronephrosis, masses or stones are noted. IMPRESSION: Diffuse fatty infiltration of an enlarged liver. 2.9 cm soft tissue structure along the nondependent wall of the gallbladder. This could reflect a l arge amount of adherent sludge versus gallbladder mass. Further characterization with CT or MRI is recommended. Tail of the pancreas not well visualized. If characterization of this structure is needed repeat exa m or CT/MRI is recommended. RPTAT: AA .Jan Thacker MD, Date Time Electronically viewed and signed by .Jan Thacker MD, MD on 09/29/2016 10:00 .P/
[2016-09-29] MEDS: FAMOTIDINE 20 MG TAB PO SCH ×2 (11:59→20:45)
[2016-09-29] MEDS: HYDROCHLOROTHIAZIDE 25 MG TAB PO SCH (12:00)
--- NOTE | 2016-09-29 13:15 | PN ---
Date/Time of Note Date/Time of Note DATE: 09/29/16 TIME: 13:08 Assessment/Plan VTE Prophylaxis VTE Prophylaxis Intervention: LMWH Lines/Catheters IV Catheter Type (from Nrsg): Saline Lock Assessment/Plan Assessment/Plan 1) RUQ abdominal pain, gallbladder mass on US, CT scan 2). Chest Pain, atypical, negative stress thallium test 3) Hypertension, controlled 4) Morbid Obesity - BMI = 59.6 5) DVT prophylaxis: lovenox Subjective 24 Hr Interval Summary Free Text/Dictation no chest pain or abdominal pain today Exam/Review of Systems Vital Signs Vitals Vital Signs Date Time Temp Pulse Resp B/P Pulse Ox O2 Delivery O2 Flow Rate FiO2 09/29/16 12:34 58 09/29/16 04:01 98.0 20 135/86 98 09/28/16 01:43 Room Air Intake and Output 09/28/16 09/28/16 09/29/16 14:59 22:59 06:59 Intake Total 480 ml 300 ml Balance 480 ml 300 ml Exam Constitutional: alert, obese, oriented, well developed Psych: nl mood/affect, no complaints Head: atraumatic, normocephalic Eyes: EOMI, nl conjunctiva, nl lids ENMT: nl external ears & nose, nl lips & teeth, nl nasal mucosa & septum Neck: non-tender, supple Respiratory: clear to auscultation, normal air movement, No congested cough, No crackles/rales, No diminished breath sounds, No intercostal retraction, No labored breathing, No other, No respirations, No tactile fremitus, No wheezing Cardiovascular: nl pulses, regular rate and rhythm, No S3, No S4, No bruits, No diastolic murmur, No edema, No gallop, No irregular rhythm, No jugular venous distention (JVD), No murmurs/extra sounds, No other, No rub, No systolic murmur Gastrointestinal: nl liver, spleen, non-tender, soft, No ascites, No bowel sounds, No distended, No firm, No hepatomegaly, No mass , No other, No rebound or guarding, No splenomegaly, No surgical scars, No tender Musculoskeletal: nl extremities to inspection, nl gait and stance, No joint tenderness, No muscle tone, No muscle weakness, No other, No range of motion, No spine non-tender, No swelling Extremities: normal pulses, No calf tenderness, No clubbing, No cyanosis, No edema, No other, No palpable cord, No pitting pedal edema, No tenderness Neurological: SALES LEAD II-XII intact, nl mental status, nl speech, nl strength Skin: nl turgor Lymph: nl lymph nodes Results Result Diagram: 09/27/16 2330 09/27/16 2330 Results 24 hrs Laboratory Tests Test 09/29/16 06:35 Magnesium Level 2.1 Medications Medications Current Medications Lorazepam (Ativan) 0.5 mg Q8H PRN PO ANXIETY; Start 09/28/16 at 02:30 Metoclopramide HCl (Reglan) 10 mg Q6H PRN IV NAUSEA AND/OR VOMITING; Start at 02:30 Nitroglycerin (Nitroglycerin (Sl Tab) 0.4 Mg) 1 tab Q5M PRN SL CHEST PAIN; Start 09/28/16 at 02:30 Acetaminophen (Tylenol Tab) 650 mg Q6H PRN PO PAIN LEVEL 1-3 OR FEVER; Start at 02:30 Acetaminophen/ Hydrocodone Bitart ([place] (5/325)) 1 tab Q6H PRN PO PAIN LEVEL 4 -6; Start 09/28/16 at 02:30 Morphine Sulfate (morphine) 2 mg Q4H PRN IV PAIN LEVEL 7-10; Start 09/28/16 at 02:30 Famotidine (Pepcid) 20 mg Q12 PO Last administered on 09/29/16 11:59; Admin Dose 20 MG; Start 09/28/16 at 09:00 Enoxaparin Sodium (Lovenox) 40 mg DAILY SC Last administered on 09/28/16 21:57 ; Admin Dose 40 MG; Start 09/28/16 at 09:00 Benazepril HCl (Lotensin) 20 mg DAILY GTB Last administered on 09/28/16 21:55 ; Admin Dose 20 MG; Start 09/28/16 at 09:00 Hydrochlorothiazide (Hydrochlorothiazide) 25 mg DAILY PO Last administered on 12:00; Admin Dose 25 MG; Start 09/28/16 at 09:00 Aspirin (Halfprin) 81 mg DAILY PO Last administered on 09/29/16 09:00; Admin Dose 81 MG; Start 09/28/16 at 14:30 Nifedipine (Procardia Xl) 30 mg DAILY PO ; Start 09/29/16 at 09:00 COBY ALTMAN MD Sep 29, 2016 13:15
[2016-09-29] MEDS ORDERED: BARIUM SULF 2% 450 ML BTL (BERRY SMOOTHIE) PO ONE (13:30)
[2016-09-29] MEDS: NIFEdipine (XL) 30 MG TAB PO SCH (13:31)
--- NOTE | 2016-09-29 17:24 | PN ---
DATE: 09/29/2016 CARDIOLOGY FOLLOWUP SUBJECTIVE: The patient with no chest pain or pressure. No palpitation. Heart rate has remained s table. Blood pressures remain stable. MEDICATIONS: Reviewed. PHYSICAL EXAMINATION: VITAL SIGNS: Temperature 98, heart rate 58, blood pressure 135/86, respiratory rate of 20. HEENT: Normocephalic, atraumatic. Obese female. Pupils are equal. CARDIOVASCULAR: Regular rate and rhythm, systolic murmur. PULMONARY: With no wheezes or rhonchi. GASTROINTESTINAL: Obese, soft, nontender. EXTREMITIES: No significant lower extremity edema. NEUROLOGIC: Awake and alert. PSYCHIATRIC: Appeared to be calm. LABORATORY DATA: Magnesium is 2.1. Nuclear stress test done yesterday showed normal LV ejection fr action of 63% with no wall motion abnormalities and no evidence of stress-induced ischemia. ASSESSMENT AND PLAN: 1. Chest pain appeared to be nonanginal, which resolved now. 2. Hypertension, currently controlled. 3. Morbid obesity. 4. Dyslipidemia. 5. Anxiety. RECOMMENDATIONS: We will continue with the current cardiac care. The patient was advised to follow up regularly as an outpatient with her primary care physician. Discharge planning. Dictated By: GARLAND CERDA/YAJAIRA Conf#: [id number] DID#: [id number] CC: ;*EndCC*
[2016-09-29] MEDS ORDERED: IOHEXOL 300MG/ML 150 ML BTL ONE (19:54)
[2016-09-29] MEDS ORDERED: SOD CHLORIDE 0.9% 100 ML ONE (19:54)
[2016-09-30] VITALS (13 sets, daily range): BP systolic 136–197; BP diastolic 62–83; PULSE 61–82; RESP 20
--- NOTE | 2016-09-30 06:42 | RADRPT ---
PROCEDURE: CT Abdomen and pelvis with contrast. CLINICAL INDICATION: Possible gallbladder mass TECHNIQUE: CT scan of the abdomen and pelvis with contrast was performed on a multidetector high-r esolution CT scan. The patient was scanned following the uncomplicated intravenous administration o f 120 ml Omnipaque-300. Coronal and sagittal reformatted images were obtained from the axial source images. Standard CT of the abdomen pelvis with contrast protocols were performed. The total exam CTDI equals 23.69 mGy and the total exam DLP equals 1329.55 mGy-cm. One or more of the following dose reduction techniques were used: - Automated exposure control. - Adjustment of the mA and/or kV according to patient size. Use of iterative reconstruction technique. COMPARISON: Abdominal ultrasound earlier same day FINDINGS: On the earlier abdominal ultrasound same day there is a localized area of increased echogenicity inv olving the nondependent portion of the gallbladder. On the current study a definite mass involving the gallbladder is not demonstrated. There is no evidence of calcified cholelithiasis or gallbladde r wall thickening. No evidence of pericholecystic fluid. No evidence of biliary ductal dilation. Recommend MRCP for further evaluation. The liver is normal in size without focal lesions. The spleen pancreas adrenal glands and kidneys a re normal in size configuration without focal lesions. Negative for hydronephrosis bilaterally. Th e urinary bladder is unremarkable. The uterus is anteflexed otherwise unremarkable. There are no a dnexal masses. Negative for intra-abdominal free air, free fluid, abscesses or lymphadenopathy. The stomach, small bowel, large bowel are unremarkable. The appendix is not fully visualized though there is no CT ev idence of appendicitis. There is atherosclerotic vascular disease of the abdominal aorta and iliac arteries but no evidence of aneurysm. The lung bases are unremarkable. There is a dextrorotatory scoliosis of the lower tho racic lumbar spine. There is extensive degenerative changes lower thoracic and lumbar spine. There are no acute osseous findings. There are no osteoblastic/osteolytic lesions. IMPRESSION: 1. Abdominal ultrasound done earlier on the same day demonstrated local area of increased echogenic ity along the nondependent portion the gallbladder and on the current study a definite mass in this region is not demonstrated. Recommend MRCP for further evaluation. 2. No evidence of biliary ductal dilation. 3. No evidence of visceral masses or obstructive uropathy. 4. No evidence of gastrointestinal disease. No CT evidence of diverticulitis or appendicitis. 5. Atherosclerosis and degenerative changes as described above. RPTAT:AAJJ Physician Grady Date Time Electronically viewed and signed by Chan Lyons Physician on 09/30/2016 06:42 VIDAL/
[2016-09-30] MEDS: FAMOTIDINE 20 MG TAB PO SCH (08:22)
[2016-09-30] MEDS: ASPIRIN (EC) 81 MG TAB PO SCH (08:22)
[2016-09-30] MEDS: ENOXAPARIN 40 MG/0.4 ML SYG SC SCH (08:25)
[2016-09-30] MEDS: BENAZEPRIL 20 MG TAB GTB SCH (08:28)
[2016-09-30] MEDS: NIFEdipine (XL) 30 MG TAB PO SCH (08:28)
[2016-09-30] MEDS: HYDROCHLOROTHIAZIDE 25 MG TAB PO SCH (08:28)
[2016-09-30] MEDS ORDERED: NIFEdipine (XL) 30 MG TAB PO ONE (09:00)
[2016-09-30] MEDS ORDERED: BENA20TA48 GTB (15:21)
[2016-09-30] MEDS ORDERED: PANT40TA3 PO (15:21)
[2016-09-30] MEDS ORDERED: HYD25 PO (15:21)
--- NOTE | 2016-09-30 15:34 | DS ---
Date/Time of Note Date/Time of Note DATE: 09/30/16 TIME: 15:22 Discharge Summary Admission/Discharge Info Admit Date/Time Sep 28, 2016 at 01:24 Discharge Date/Time Final Diagnosis 1). Chest Pain, atypical, negative stress thallium test, likely GERD 2) RUQ abdominal pain, gallbladder mass on US but negative on CT scan, protonix , follow up with PCP 3) Hypertension, controlled 4) Morbid Obesity - BMI = 59.6 Patient Condition: Stable Procedures [place] [address] Radiology Main Line: [phone] DIAGNOSTIC IMAGING REPORT Patient: JOSÉ MIGUEL PATEL : 1955 Age: 60 Sex: F MR #: [id number] DOS: 09/28/16 0000 Ordering MD: GARLAND MONTES MD Location: [facility] – [place] Room/Bed: [facility] PROCEDURE: Lexiscan myocardial perfusion study CLINICAL INDICATION: 60 -year-old patient complaining of chest pain. TECHNIQUE: Lexiscan 0.4 mg intravenously separate acquisition gated myocardial perfusion SPECT using Tc 99m Myoview 33.8 mCi intravenously at stress and Tc-99m Myoview, 11.7 mCi intravenously at rest was performed using the rest/stress sequence. Poststress Myoview SPECT images were obtained in the supine position. COMPARISON: No prior studies. FINDINGS: Perfusion images reveal mild nonreversible perfusion abnormality in the anterior and anteroseptal zhang, which is likely related to soft tissue attenuation. Lexiscan post stress gated SPECT images demonstrate no wall motion abnormalities. IMPRESSION: 1. No evidence of stress-induced ischemia. 2. No wall motion abnormalities. 3. The left ventricle ejection fraction at stress is 63%. A call report was made to Dr. Montes at 05:32 p.m. on September 28, 2016. RPTAT: HH .Radha Zavala MD, MD Date Time Electronically viewed and signed by .Radha Zavala MD, on 09/28/2016 17:34 .L/ CC: GARLAND MONTES MD [place] [address] Radiology Main Line: [phone] DIAGNOSTIC IMAGING REPORT Patient: JOSÉ MIGUEL PATEL : 1955 Age: 60 Sex: F MR #: [id number] DOS: 09/29/16 0000 Ordering MD: COBY ALTMAN MD Location: [facility] [place] Room/Bed: [facility] PROCEDURE: US Abdomen Limited . CLINICAL INDICATION: Abdominal pain TECHNIQUE: Multiple real-time images were acquired of the patient's right upper quadrant abdomen utilizing a high resolution transducer. COMPARISON: None FINDINGS: The liver measures 24.1 cm and demonstrates a coarsened echogenicity. The gallbladder is filled with a moderate amount of bile. A 2.1 x 2.1 x 2.9 cm soft tissue echogenicity is structures identified along the nondependent wall of the gallbladder. The gallbladder wall is not thickened at 1.0 mm. No pericholecystic fluid is noted. The common bile duct measures 4.8 mm in diameter. The visualized portions of the proximal pancreas are unremarkable. The tail of the pancreas is not well visualized. Antegrade flow is seen in the portal vein. Right kidney measures 11.5 cm. Right kidney demonstrates a normal echogenicity. No hydronephrosis, masses or stones are noted. IMPRESSION: Diffuse fatty infiltration of an enlarged liver. 2.9 cm soft tissue structure along the nondependent wall of the gallbladder. This could reflect a large amount of adherent sludge versus gallbladder mass. Further characterization with CT or MRI is recommended. Tail of the pancreas not well visualized. If characterization of this structure is needed repeat exam or CT/MRI is recommended. RPTAT: AA .Jan Thacker MD, Date Time Electronically viewed and signed by .Jan Thacker MD, on 09/29/2016 10:00 .P/ CC: COBY ALTMAN MD [facility] [address] [place] [address] Radiology Main Line: [phone] DIAGNOSTIC IMAGING REPORT Patient: JOSÉ MIGUEL PATEL : 1955 Age: 60 Sex: F MR #: [id number] DOS: 09/29/16 0000 Ordering MD: COBY ALTMAN MD Location: [facility] [place] Room/Bed: [facility] PROCEDURE: CT Abdomen and pelvis with contrast. CLINICAL INDICATION: Possible gallbladder mass TECHNIQUE: CT scan of the abdomen and pelvis with contrast was performed on a multidetector high-resolution CT scan. The patient was scanned following the uncomplicated intravenous administration of 120 ml Omnipaque-300. Coronal and sagittal reformatted images were obtained from the axial source images. Standard CT of the abdomen pelvis with contrast protocols were performed. The total exam CTDI equals 23.69 mGy and the total exam DLP equals 1329.55 mGy- cm. One or more of the following dose reduction techniques were used: - Automated exposure control. - Adjustment of the mA and/or kV according to patient size. Use of iterative reconstruction technique. COMPARISON: Abdominal ultrasound earlier same day FINDINGS: On the earlier abdominal ultrasound same day there is a localized area of increased echogenicity involving the nondependent portion of the gallbladder. On the current study a definite mass involving the gallbladder is not demonstrated. There is no evidence of calcified cholelithiasis or gallbladder wall thickening. No evidence of pericholecystic fluid. No evidence of biliary ductal dilation. Recommend MRCP for further evaluation. The liver is normal in size without focal lesions. The spleen pancreas adrenal glands and kidneys are normal in size configuration without focal lesions. Negative for hydronephrosis bilaterally. The urinary bladder is unremarkable. The uterus is anteflexed otherwise unremarkable. There are no adnexal masses. Negative for intra-abdominal free air, free fluid, abscesses or lymphadenopathy. The stomach, small bowel, large bowel are unremarkable. The appendix is not fully visualized though there is no CT evidence of appendicitis. There is atherosclerotic vascular disease of the abdominal aorta and iliac arteries but no evidence of aneurysm. The lung bases are unremarkable. There is a dextrorotatory scoliosis of the lower thoracic lumbar spine. There is extensive degenerative changes lower thoracic and lumbar spine. There are no acute osseous findings. There are no osteoblastic/osteolytic lesions. IMPRESSION: 1. Abdominal ultrasound done earlier on the same day demonstrated local area of increased echogenicity along the nondependent portion the gallbladder and on the current study a definite mass in this region is not demonstrated. Recommend MRCP for further evaluation. 2. No evidence of biliary ductal dilation. 3. No evidence of visceral masses or obstructive uropathy. 4. No evidence of gastrointestinal disease. No CT evidence of diverticulitis or appendicitis. 5. Atherosclerosis and degenerative changes as described above. RPTAT:AAJJ Physician Grady Date Time Electronically viewed and signed by Chan Lyons Physician on 09/30/2016 06:42 BM/ CC: COBY ALTMAN MD Hospital Course 60 years old obese lady came in with lower chest pain. It is band like at lower chest on both side. Worse when she stand up. She has some tenderness at RUQ of abdomen on physical exam. To rule out cardiac chest pain, she has stress thallium test that is negative for ischemia or scar. To work up for upper abdominal pain, US reported as a gallbladder mass that is not demostrated on CT scan. Patient has heartburns, I will keep her on protonix and follow up with PCP outpatient. Home Meds Active Scripts Pantoprazole* (Protonix*) 40 Mg Tablet.dr, 40 MG PO DAILY for 30 Days, TAB Prov:COBY ALTMAN MD 09/30/16 Hydrochlorothiazide* (Hydrochlorothiazide*) 25 Mg Tab, 25 MG PO DAILY for 30 Days, TAB Prov:COBY ALTMAN MD 09/30/16 Benazepril Hcl* (Benazepril Hcl*) 20 Mg Tablet, 20 MG GTB DAILY for 30 Days, TAB Prov:COBY ALTMAN MD 09/30/16 Nifedipine (Nifedical Xl) 60 Mg Tab.er.24, 60 MG PO DAILY for 10 Days, #10 TAB 1 Refill Prov:ANA PAULA VALENTINE MD 09/25/16 Follow-up Plan PCP in 1-2 weeks PCP to repeat abdominal US in 2-3 weeks COBY ALTMAN MD Sep 30, 2016 15:32
--- NOTE | 2016-09-30 18:57 | CONS ---
[facility] INITIAL INPATIENT CONSULTATION NOTE DATE OF CONSULTATION: 09/30/2016 PLACE OF SERVICE: [facility], 5th floor, [facility] IMPRESSION AND PLAN: A very pleasant but unfortunate 60-year-old lady with severe comorbidity of body mass index of 59.7 as well as a number of other medical issues who was found to have an abnormality in the right upper quadrant ultrasound which could be a benign issue such as sludge, but possibility of a polyp or gallbladder mass cannot be 100% ruled out. Recommendation of radiologist was to consider an MRCP, but the patient is claustrophobic and cannot tolerate an MRI. The patient also has other medical issues currently that make her significantly high risk for an elective laparoscopic cholecystectomy, which I would have otherwise recommended in this setting. Since this issue has just been discovered and the patient cannot have an MRI, I would recommend that we continue to manage the patient's medical problems, and once she is discharged, she can be referred to an outpatient center or an inpatient setting with open MRI where they can perform an MRCP for further characterization of this lesion. If there are any concerning features or if we cannot get adequate information from our diagnostics, then a laparoscopic elective cholecystectomy would be indicated with intraoperative ultrasound in order to further characterize the lesion. I explained all of this to the patient in detail and answered all her questions to the best of my ability. I believe that the patient understood and agreed with the plans. Note that there were no family members present in the room while I discussed the issues with the patient. With the above assessment, I have recommended the followin. Continue medical management. 2. Once discharged, to refer the patient to a center with an open MRI for MRCP attempt. 3. Follow with primary care physician as an outpatient. 4. Follow up with us as an outpatient. 5. Consideration for laparoscopic, possible open cholecystectomy if above workup does not characterize the lesion better. Thank you again for allowing us to participate in the care of this very pleasant lady and I am certain her wonderful family. If there are any questions , please feel free to call me at [phone]. TOTAL VISIT TIME: 45 minutes, of which more than half was spent in face-to- face discussion with the patient as well as coordination of care between multiple physicians and providers. UPDATED CLINICAL SUMMARY: The patient is a very pleasant 60-year-old lady with comorbid issues of BMI 59.7 as well as a number of other medical problems who was admitted through the emergency department at [facility] on 09/28/2016 primarily for chest pain, fatigue, resistant hypertension, tinnitus, dizziness and her obesity. She underwent an ultrasound of the right upper quadrant and a CT scan of abdomen and pelvis on 09/29 and 09/30/2016 respectively which showed 2.9 cm soft-tissue structure along the nondependent wall of the gallbladder which could represent large amount of adherent sludge versus gallbladder mass. There was also diffuse fatty infiltration of the enlarged liver. This was on the ultrasound. CT scan showed no visualization of the lesion seen on the ultrasound in the gallbladder, and an MRCP was recommended. There was also atherosclerotic vascular disease as well as degenerative bony disease. COMORBIDITIES: 1. BMI 59.7. 2. Atherosclerotic vascular disease. 3. Degenerative changes of the lower thoracic and lumbar spine. 4. Dextrorotatory scoliosis of the lower thoracic, lumbar spine. 5. Fatty infiltration of the liver. 6. Chest pain. 7. Resistant hypertension. 8. Tinnitus. 9. Dizziness. 10. Dyslipidemia. DATE OF ADMISSION: 09/28/2016 HISTORY OF PRESENT ILLNESS: The patient is a very pleasant 60-year-old lady with above-mentioned comorbidities who we were kindly asked to consult regarding management of her gallbladder lesion. The patient herself does not have any specific complaints regarding her gallbladder, although she has innumerable vague medical-type symptoms including but not limited to numbness and pain in her upper extremities as well as a band-like pain under her breasts and back and chest region. No difficulty with eating and no changes in appetite. No changes in bowel or bladder habits. ALLERGIES: NO KNOWN DRUG ALLERGIES. MEDICATIONS: 1. Benazepril. 2. Hydrochlorothiazide. 3. Nifedical. 4. Protonix. SOCIAL HISTORY: The patient lives with family and does not report any significant major smoking, drinking or intravenous drug use. FAMILY HISTORY: No major reported medical, surgical or oncologic problems in the family. The patient's father had myocardial infarction, and he was a smoker. REVIEW OF SYSTEMS: Other than the above mentioned, there are no other pertinent positives or pertinent negatives in a complete 14-point review of systems. PHYSICAL EXAMINATION: GENERAL: The patient appears to be a very pleasant lady of [place] descent, sitting in a chair comfortably and in no acute distress. BMI is 59.7. VITAL SIGNS: Temperature 98.4, blood pressure 136/62, pulse 69, respiratory rate 20, pulse oximetry 94% on room air. HEENT: Normocephalic and atraumatic. Extraocular muscles and hearing are grossly intact bilaterally and symmetrically. Sclerae are nonicteric. Oral cavity is clear; oral mucosa appeared to be pink and moist. Dentition: fair to poor. NECK: Supple. There is no lymphadenopathy or JVD. There is no submental, submandibular or supraclavicular lymphadenopathy. CHEST: Rises symmetrically with each breath; patient is breathing comfortably. There are no audible wheezes, rales or rhonchi on the gross exam. HEART: Pulse is regular and palpable on the left wrist. Capillary refill was normal. Carotid pulses are palpable bilaterally and symmetrically in the neck. EXTREMITIES: Lower extremities contain no pitting edema around the ankles bilaterally and symmetrically. ABDOMEN: Abdomen is soft, nontender and nondistended. There are no peritoneal signs or guarding. No evidence of ascites, organomegaly, caput medusae, engorged subcutaneous veins, or other abnormalities. SKIN: Appears to be pink and feels warm to touch. NEUROLOGIC: Awake, alert, and follows commands appropriately. LABORATORY VALUES: Chemistries were normal. Alkaline phosphatase 39, bilirubin 0.4, albumin 4.2. CBC was normal. Platelet count 269. INR 1.08. IMAGING: Reviewed above. Note that I personally reviewed all the available pertinent images, and I agree in general with their overall reported findings. Dictated By: CHANCE CHOE/YAJAIRA Conf#: [id number] DID#: [id number] ISRA
[2016-10-01] MEDS ORDERED: NIFEdipine (XL) 30 MG TAB PO SCH (09:00)
== END 2016-09-30 17:23 | disposition home or self-care (01) | DRG 392 ==
LOC: E/R 23:19 → MS4 09-28 01:24
PROVIDERS: ADMIT Family Medicine; ATTEND Family Medicine
PROC: C22G1ZZ Tomographic (Tomo) Nuclear Medicine Imaging of Myocardium using Technetium 99m (Tc-99m) (ICD-10-PCS; principal; 2016-09-28)
PROC: 4A02XM4 Measurement of Cardiac Total Activity, External Approach (ICD-10-PCS; 2016-09-28)
PROC: 3E033HZ Introduction of Radioactive Substance into Peripheral Vein, Percutaneous Approach (ICD-10-PCS; 2016-09-28)
DX: K21.9 Gastro-esophageal reflux disease without esophagitis (principal); Z68.43 Body mass index [BMI] 50.0-59.9, adult; I10 Essential (primary) hypertension; H93.19 Tinnitus, unspecified ear; E66.01 Morbid (severe) obesity due to excess calories; R10.11 Right upper quadrant pain; E78.5 Hyperlipidemia, unspecified; F41.9 Anxiety disorder, unspecified; K82.9 Disease of gallbladder, unspecified
CPT/HCPCS: 36415; 71010; 74177; 76705; 78452; 80053; 82550; 82553; 82607; 83735; 83880; 84134; 84484; 85025; 85610; 85730; 93005; 93017; 93306; 96361; 96374; 96375; A9500; A9505; J1650; J2270; J2405; J2785; J7040; Q9967

== ENCOUNTER 2017-02-08 12:19 | Day surgery (SDC) | payer OTHER ==
[~2017-02-08] VITALS: Ht 154.9 cm; Wt 154.0 kg
[~2017-02-08 12:19] MED LIST changes: +BENA20TA48 GTB; +HYD25 PO; +PANT40TA3 PO
[2017-02-08] MEDS ORDERED: POTA99TA5 PO (13:21)
[2017-02-08] MEDS ORDERED: LORA1TAB PO (13:21)
[2017-02-08] MEDS ORDERED: HYDR-3605 PO (13:21)
[2017-02-08] MEDS ORDERED: MECL-77 PO (13:21)
[2017-02-08] MEDS ORDERED: FURO40TA4 PO (13:21)
[2017-02-08] MEDS ORDERED: CLON-379 PO (13:21)
[2017-02-08] MEDS ORDERED: FENO160T13 PO (13:21)
[2017-02-08] MEDS ORDERED: SIMV20TA PO (13:21)
[2017-02-08] MEDS ORDERED: ASPI-664 PO (13:21)
[2017-02-08] MEDS ORDERED: DULOXETINE (13:21)
[2017-02-08] MEDS ORDERED: CARV25TA79 PO (13:21)
[2017-02-08] MEDS ORDERED: GABA300C16 PO (13:21)
[2017-02-08 13:25] VITALS: Ht 154.9 cm; Wt 154.0 kg
[2017-02-08 13:52] VITALS: BP 172/68; PULSE 78; RESP 10
[2017-02-08] MEDS ORDERED: LIDOCAINE 2% (SDV) 5 ML INJ ONE (15:23)
[2017-02-08] MEDS ORDERED: PROPOFOL 40 ML ONE (15:23)
--- NOTE | 2017-02-08 15:57 | OPR ---
Date/Time of Note Date/Time of Note DATE: 02/08/17 TIME: 15:55 Operative Report Preoperative Diagnosis Dyspepsia Postoperative Diagnosis Impression: * Moderate distal esophagitis * Erosive nodular gastritis. Biopsies obtained. Rule out H. pylori infection Plan: * Omeprazole 40 mg daily * Review pathology as soon as available * Follow-up in the office as previously scheduled . Operation/Procedure Performed EGD with biopsies Surgeon: VALERIO MONROY MD Anesthesia Type: MAC Estimated Blood Loss: none Transfusion Required: no Specimens Gastric body and antrum Grafts/Implants: none Complications: no VALERIO MONROY MD Feb 08, 2017 15:57
--- NOTE | 2017-02-08 15:59 | OPR ---
Date/Time of Note Date/Time of Note DATE: 02/08/17 TIME: 15:57 Operative Report Preoperative Diagnosis Colorectal cancer screening Postoperative Diagnosis Impression: * 4 mm sessile polyp rectum. Ablated * Moderate-sized internal and external hemorrhoids * Otherwise normal colonoscopy to cecum. Plan: * Review pathology as soon as available * Annual Hemoccult stool testing * Surveillance colonoscopy in 5 years . Operation/Procedure Performed Colonoscopy with ablation Surgeon: VALERIO MONROY MD Anesthesia Type: MAC Estimated Blood Loss: none Transfusion Required: no Specimens Rectal polyp Grafts/Implants: none Complications: no VALERIO MONROY MD Feb 08, 2017 15:59
[2017-02-08 16:40] VITALS: BP 161/65; PULSE 80; RESP 18
--- NOTE | 2017-02-09 00:07 | GILP ---
DATE OF PROCEDURE: 02/08/2017 PROCEDURE PERFORMED: Esophagogastroduodenoscopy with biopsies. INDICATION: The patient being evaluated for dyspepsia. PREMEDICATIONS: Monitored anesthesia care by anesthesiologist. INSTRUMENT USED: TECHNIQUE: After informed consent, with the patient/relatives understanding the procedure, its indications, potential risks and complications, including but not limited to: allergic reaction, bleeding, perforation or infection, and after all pertinent questions were answered to the patients satisfaction, the patient/relatives signed witnessed informed consent. Following this, premedication was administered slowly IV push under careful cardiovascular and respiratory monitoring with pulse oximetry, automatic blood pressure and bus driver/monitor. Once the sedative effect was achieved the patient was place in the left lateral decubitus, the panendoscope was introduced and advanced under visual control. Careful examination of the upper gastrointestinal tract, both on insertion as well as withdrawal of the instrument disclosed the following findings: ESOPHAGUS: The distal esophagus shows moderate erythema and edema in the mucosa at EG junction. STOMACH: Upon entrance to the stomach air was insufflated, the gastric zhang distended normally. There is significant erythema, edema, nodularity and erosions in the antrum of the stomach. Biopsies were obtained to rule out H. pylori infection. PYLORUS: The pylorus appears patent and within normal limits, with no evidence of gastric outlet obstruction. DUODENUM: The duodenal mucosa was carefully examined in the duodenal bulb as well as the second portion of the duodenum and appears unremarkable with no evidence of duodenitis, ulcer or neoplasm. The instrument was then withdrawn, the patient tolerated the procedure well and was transfer out of the endoscopy suite awake, and in good condition to continue recovery under observation. IMPRESSION: 1. Moderate distal esophagitis. 2. Erosive nodular gastritis. Rule out H. pylori infection. Biopsies obtained. RECOMMENDATIONS: The patient will be treated with omeprazole 40 mg daily. Pathology will be reviewed as soon as available. Followup in the office as previously scheduled. Dictated By: Lizette Obregon MD /deb/demetria /Document#: [id number] ; FAX [phone]
--- NOTE | 2017-02-09 00:19 | GILP ---
DATE OF PROCEDURE: 02/08/2017 PROCEDURE PERFORMED: Colonoscopy to cecum. INDICATIONS FOR PROCEDURE: Colorectal cancer screening. PREMEDICATIONS: Monitored anesthesia care by anesthesiologist. INSTRUMENT USED: Olympus colonoscope. PREPARATION: Adequate. TECHNIQUE: After informed consent, with the patient/relatives understanding the procedure, its indications potential risks and complications, including but not limited to: allergic reaction, bleeding, perforation, infection, missed lesions and after all pertinent questions were answered to the patient's satisfaction, the patient/relatives signed the witnessed informed consent. Following this, premedication was administered slowly IV push by under careful cardiovascular and respiratory monitoring with pulse oximetry, automatic blood pressure and assembly person. Once the sedative effect was achieved, the patient was placed in the left lateral decubitus position, digital rectal examination was performed. The colonoscope was then introduced and advanced under visual control throughout all segments of the colon including: The rectum, sigmoid, descending colon, splenic flexure, transverse colon, hepatic flexure, ascending colon and finally reaching the cecum which was clearly identified by transillumination, finger indentation and the ileocecal valve. Careful examination of the mucosa of the lower gastrointestinal tract both on insertion as well as withdrawal of the instrument disclosed the following findings: RECTAL EXAMINATION: Moderate sized external hemorrhoids and skin tags. COLONIC MUCOSA: There is a 4 mm polyp in the rectum. The polyp was completed ablated with biopsy forceps. The remainder of the colon mucosa unremarkable throughout. The ileocecal valve was clearly identified, appears unremarkable. The instrument was withdrawn. On withdrawal of the instrument, no additional abnormalities were noted with the exception of moderate sized internal hemorrhoids. The instrument was then withdrawn, the patient tolerated the procedure well and was transferred out of the Endoscopy Suite awake and in good condition to continue recovery under observation. IMPRESSION: 1. 4-mm sessile polyp in the rectum, ablated. 2. Moderate sized internal and external hemorrhoids. 3. Otherwise normal colonoscopy to cecum. PLAN: Pathology will be reviewed as soon as it is available. Annual Hemoccult stool testing is recommended. Surveillance colonoscopy in 5 years. Dictated By: Lizette Obregon MD /deb/demetria /Document#: [id number] ; FAX [phone]
== END 2017-02-08 17:17 | disposition home or self-care (01) ==
LOC: GIL 12:19
PROVIDERS: ATTEND Internal Medicine Gastroenterology
DX: Z12.11 Encounter for screening for malignant neoplasm of colon (principal); K20.8 Other esophagitis; K29.60 Other gastritis without bleeding; D12.7 Benign neoplasm of rectosigmoid junction; K64.8 Other hemorrhoids; K64.4 Residual hemorrhoidal skin tags; I10 Essential (primary) hypertension; E78.5 Hyperlipidemia, unspecified; E66.01 Morbid (severe) obesity due to excess calories; Z68.43 Body mass index [BMI] 50.0-59.9, adult
CPT/HCPCS: 43239; 45380; 88305; Z7610